=== PATIENT | female | born 1985 | race Two or more races ===

== ENCOUNTER 2020-11-29 15:05 | Outpatient (CLI) | payer OTHER | END 2020-11-29 16:29 | disposition home or self-care (01) | LOC: PRENATAL 15:05 | PROVIDERS: ATTEND Obstetrics & Gynecology Maternal & Fetal Medicine | DX: O26.21 Pregnancy care for patient with recurrent pregnancy loss, first trimester (principal); O36.80X1 Pregnancy with inconclusive fetal viability, fetus 1; O09.521 Supervision of elderly multigravida, first trimester; Z36.89 Encounter for other specified antenatal screening; Z3A.14 14 weeks gestation of pregnancy ==

== ENCOUNTER 2021-01-18 12:47 | Outpatient (CLI) | payer OTHER | END 2021-01-18 13:55 | disposition home or self-care (01) | LOC: PRENATAL 12:47 | PROVIDERS: ATTEND Obstetrics & Gynecology Maternal & Fetal Medicine | DX: O35.0XX1 Maternal care for (suspected) central nervous system malformation in fetus, fetus 1 (principal); O35.3XX1 Maternal care for (suspected) damage to fetus from viral disease in mother, fetus 1; O98.512 Other viral diseases complicating pregnancy, second trimester; O09.512 Supervision of elderly primigravida, second trimester; Z36.89 Encounter for other specified antenatal screening; Z3A.21 21 weeks gestation of pregnancy ==

== ENCOUNTER 2021-04-12 12:57 | Outpatient (CLI) | payer OTHER | END 2021-04-12 14:15 | disposition home or self-care (01) | LOC: PRENATAL 12:57 | PROVIDERS: ATTEND Obstetrics & Gynecology Maternal & Fetal Medicine | DX: O36.8131 Decreased fetal movements, third trimester, fetus 1 (principal); O26.843 Uterine size-date discrepancy, third trimester; O35.0XX1 Maternal care for (suspected) central nervous system malformation in fetus, fetus 1; O09.523 Supervision of elderly multigravida, third trimester; O26.23 Pregnancy care for patient with recurrent pregnancy loss, third trimester; Z36.89 Encounter for other specified antenatal screening; Z3A.33 33 weeks gestation of pregnancy ==

== ENCOUNTER 2021-04-27 13:15 | Inpatient (IN) | payer OTHER ==
[~2021-04-27] VITALS: Ht 157.5 cm; Wt 67.6 kg
[2021-05-27] MEDS ORDERED: PRENATAL TABLE1 EAC3 PO (03:57)
== END 2021-05-29 14:04 | disposition home or self-care (01) | DRG 768 ==
LOC: LDR 05-27 00:12 → OB/GYN 05-27 18:09
PROVIDERS: ADMIT Obstetrics & Gynecology; ATTEND Obstetrics & Gynecology
PROC: 10E0XZZ Delivery of Products of Conception, External Approach (ICD-10-PCS; principal; 2021-05-27)
PROC: 0DQP0ZZ Repair Rectum, Open Approach (ICD-10-PCS; 2021-05-27)
PROC: 4A1HXCZ Monitoring of Products of Conception, Cardiac Rate, External Approach (ICD-10-PCS; 2021-05-27)
PROC: 0W8NXZZ Division of Female Perineum, External Approach (ICD-10-PCS; 2021-05-27)
DX: O70.3 Fourth degree perineal laceration during delivery (principal); Z37.0 Single live birth; Z3A.38 38 weeks gestation of pregnancy; Z20.822 Contact with and (suspected) exposure to COVID-19

== ENCOUNTER 2021-11-08 19:36 | Emergency (ER) | payer OTHER ==
[~2021-11-08] VITALS: Ht 157.5 cm; Wt 54.4 kg
[~2021-11-08 19:36] MED LIST: PRENATAL TABLE1 EAC3 PO
== END 2021-11-08 23:41 | disposition home or self-care (01) ==
LOC: ER 19:36
DX: O20.9 Hemorrhage in early pregnancy, unspecified (principal); Z3A.10 10 weeks gestation of pregnancy

== ENCOUNTER 2021-11-30 08:11 | Outpatient (CLI) | payer OTHER | END 2021-11-30 09:25 | disposition home or self-care (01) | LOC: PRENATAL 08:11 | PROVIDERS: ATTEND Obstetrics & Gynecology Maternal & Fetal Medicine | DX: O36.80X0 Pregnancy with inconclusive fetal viability, not applicable or unspecified (principal); O09.529 Supervision of elderly multigravida, unspecified trimester; O44.00 Complete placenta previa NOS or without hemorrhage, unspecified trimester; O26.859 Spotting complicating pregnancy, unspecified trimester; Z3A.14 14 weeks gestation of pregnancy ==

== ENCOUNTER 2022-04-05 10:07 | Outpatient (CLI) | payer OTHER | END 2022-04-05 12:15 | disposition home or self-care (01) | LOC: PRENATAL 10:07 | PROVIDERS: ATTEND Obstetrics & Gynecology Maternal & Fetal Medicine | DX: O26.849 Uterine size-date discrepancy, unspecified trimester (principal); O36.8199 Decreased fetal movements, unspecified trimester, other fetus; O35.9XX0 Maternal care for (suspected) fetal abnormality and damage, unspecified, not applicable or unspecified; Z3A.32 32 weeks gestation of pregnancy ==

== ENCOUNTER 2022-05-03 13:41 | Outpatient (CLI) | payer OTHER | END 2022-05-03 15:00 | disposition home or self-care (01) | LOC: PRENATAL 13:41 | PROVIDERS: ATTEND Obstetrics & Gynecology Maternal & Fetal Medicine | DX: O26.849 Uterine size-date discrepancy, unspecified trimester (principal); O09.529 Supervision of elderly multigravida, unspecified trimester; O36.8199 Decreased fetal movements, unspecified trimester, other fetus; O35.9XX0 Maternal care for (suspected) fetal abnormality and damage, unspecified, not applicable or unspecified; Z3A.36 36 weeks gestation of pregnancy ==

== ENCOUNTER 2022-05-16 13:45 | Inpatient (IN) | payer OTHER ==
[~2022-05-16] VITALS: Ht 157.5 cm; Wt 3.2 kg
[2022-05-16] MEDS ORDERED: ADULT LOW DOSE81 M1 PO (18:34)
[2022-05-20] MEDS ORDERED: COLACE100 MG PO (13:14)
[2022-05-20] MEDS ORDERED: IBU800 MG PO (13:14)
[2022-05-20] MEDS ORDERED: SIMETHICONE125 M1 PO (13:15)
== END 2022-05-20 14:07 | disposition home or self-care (01) | DRG 785 ==
LOC: OB/GYN 13:45 → LDR 16:51 → O/R 05-17 16:48 → OB/GYN 05-17 20:02
PROVIDERS: ADMIT Obstetrics & Gynecology; ATTEND Obstetrics & Gynecology
PROC: 4A1HXCZ Monitoring of Products of Conception, Cardiac Rate, External Approach (ICD-10-PCS; 2022-05-16)
PROC: 0UB70ZZ Excision of Bilateral Fallopian Tubes, Open Approach (ICD-10-PCS; 2022-05-17)
PROC: 10D00Z1 Extraction of Products of Conception, Low, Open Approach (ICD-10-PCS; principal; 2022-05-17 16:30)
DX: O41.03X0 Oligohydramnios, third trimester, not applicable or unspecified (principal); Z3A.38 38 weeks gestation of pregnancy; Z37.0 Single live birth; Z20.822 Contact with and (suspected) exposure to COVID-19; Z30.2 Encounter for sterilization